=== PATIENT | female | born 1995 | race Hispanic/Latino ===

== ENCOUNTER 2023-02-07 19:52 | Inpatient (IN) | payer MEDICAID, OTHER, SELFPAY ==
[2023-02-07] MEDS ORDERED: Misoprostol 200 MCG TAB PR PRN (20:36)
[2023-02-07] MEDS ORDERED: hydrALAZINE 20 MG/ML VIAL SLOW IVP PRN (20:36)
[2023-02-07] MEDS ORDERED: Lidocaine 1% (PF) 30 ML VIAL SC PRN (20:36)
[2023-02-07] MEDS ORDERED: Ondansetron PF 4 MG/2 ML Vial IVP PRN (20:36)
[2023-02-07] MEDS ORDERED: Tranexamic Acid 1,000 MG/10 ML VIAL IVP PRN (20:36)
[2023-02-07] MEDS ORDERED: Promethazine HCl 25 MG/ML VIAL IM PRN (20:36)
[2023-02-07 20:39] VITALS: BMI 26.6
[2023-02-07] MEDS ORDERED: NS w/ Oxytocin 30 units 500 ML IV SCH ×2 (20:45)
[2023-02-07 21:00] LABS: Hemoglobin 11.1 g/dL (12.0-15.5); Mean Corpuscular Hemoglobin 26.6 pg (27.0-33.0); Mean Corpuscular Volume 80.4 fl (81.6-98.3); Mean Platelet Volume 11.8 fl (7.4-10.4); Platelet Count 185 10x3/uL (150-450); RBC Distribution Width 15.3 % (11.5-14.5); Red Blood Cell (RBC) Count 4.18 10x6/uL (3.90-5.03); White Blood Cell (WBC) Count 9.7 10x3/uL (3.5-10.5)
[2023-02-07] MEDS ORDERED: Lactated Ringer's 1,000 ML IV SCH (21:00)
[2023-02-07] MEDS ORDERED: Acetaminophen 500 MG TAB PO PRN (21:00)
[2023-02-07] MEDS ORDERED: Ibuprofen 800 MG TAB PO PRN (21:00)
[2023-02-07] MEDS ORDERED: Carboprost 250 MCG/ML AMP IM PRN (21:00)
[2023-02-07] MEDS ORDERED: Methylergonovine 0.2 MG/ML VIAL IM PRN (21:00)
[2023-02-07 21:25] LABS: HBSAg Index 0.16 S/CO (0-0.99); Hep B Surf Ag - L&D Non-Reactive S/CO (NonReactive)
[2023-02-07 21:35] LABS: Syphilis Antibody Nonreactive (Nonreactive); Syphilis Antibody Index 0.05 S/CO (<1.00 Non-Reactive)
[2023-02-08] MEDS ORDERED: Lanolin Ointment 7 GM TUBE TOP PRN (01:24)
[2023-02-08] MEDS ORDERED: Ondansetron PF 4 MG/2 ML Vial IVP PRN (01:24)
[2023-02-08] MEDS ORDERED: hydrALAZINE 20 MG/ML VIAL SLOW IVP PRN (01:24)
[2023-02-08] MEDS ORDERED: Bisacodyl 10 MG SUPP PR PRN (01:24)
[2023-02-08] MEDS ORDERED: Methylergonovine 0.2 MG/ML VIAL IM PRN (01:24)
[2023-02-08] MEDS ORDERED: Preparation H Ointment 28 GM TUBE PR PRN (01:24)
[2023-02-08] MEDS ORDERED: Misoprostol 200 MCG TAB VAG PRN (01:24)
[2023-02-08] MEDS ORDERED: Milk Of Magnesia 30 ML UDCUP PO PRN (01:24)
[2023-02-08] MEDS ORDERED: Boostrix 0.5 ML (Tdap) VIAL (>/=7 yrs of age) IM ONE (01:24)
[2023-02-08] MEDS ORDERED: NS w/ Oxytocin 30 units 500 ML IV SCH (01:30)
[2023-02-08 03:05] LABS: #Monocytes 0.6 10x3/uL (0.0-1.1); #Neutrophils 14.5 10x3/uL (1.5-8.4); %Basophils 0.1 % (0.0-2.0); %Lymphocytes 3.6 % (18.0-47.0); %Monocytes 3.7 % (0.0-10.0); %Neutrophils 92.1 % (40.0-75.0); Hemoglobin 11.3 g/dL (12.0-15.5); Mean Corpuscular HGB CONC 32.8 g/dL (32.0-36.0); Mean Corpuscular Hemoglobin 26.6 pg (27.0-33.0); Mean Corpuscular Volume 80.9 fl (81.6-98.3); Mean Platelet Volume 12.1 fl (7.4-10.4); Platelet Count 178 10x3/uL (150-450); RBC Distribution Width 15.5 % (11.5-14.5); Red Blood Cell (RBC) Count 4.25 10x6/uL (3.90-5.03); White Blood Cell (WBC) Count 15.7 10x3/uL (3.5-10.5)
[2023-02-08] MEDS: Ibuprofen 800 MG TAB PO SCH ×3 (05:51→21:42)
[2023-02-08] MEDS: Prenatal Vitamin 1 TAB PO SCH (13:55)
[2023-02-08] MEDS: Docusate 100 MG CAP PO SCH ×2 (13:56→21:42)
[2023-02-08] MEDS: Ferrous Sulfate 325 MG TAB PO SCH ×2 (13:56→19:31)
[2023-02-09] MEDS: Ibuprofen 800 MG TAB PO SCH ×3 (05:18→21:34)
[2023-02-09] MEDS: Prenatal Vitamin 1 TAB PO SCH (08:37)
[2023-02-09] MEDS: Ferrous Sulfate 325 MG TAB PO SCH ×2 (08:37→16:43)
[2023-02-09] MEDS: Docusate 100 MG CAP PO SCH ×2 (08:37→21:34)
[2023-02-10] MEDS: Ibuprofen 800 MG TAB PO SCH (06:20)
[2023-02-10 07:13] VITALS: BP 95/58; TEMP 99
[2023-02-10] MEDS: Docusate 100 MG CAP PO SCH (08:18)
[2023-02-10] MEDS: Prenatal Vitamin 1 TAB PO SCH (08:18)
[2023-02-10] MEDS: Ferrous Sulfate 325 MG TAB PO SCH (08:26)
== END 2023-02-10 14:10 | disposition home or self-care (01) | DRG 807 ==
LOC: CSHLD/OP 19:52 → CSHLD 20:35 → CSHPP 02-08 03:40
PROVIDERS: ADMIT Obstetrics & Gynecology; ATTEND Obstetrics & Gynecology
PROC: 10907ZC Drainage of Amniotic Fluid, Therapeutic from Products of Conception, Via Natural or Artificial Opening (ICD-10-PCS; 2023-02-07)
PROC: 10E0XZZ Delivery of Products of Conception, External Approach (ICD-10-PCS; principal; 2023-02-08)
PROC: 0KQM0ZZ Repair Perineum Muscle, Open Approach (ICD-10-PCS; 2023-02-08)
DX: O36.63X0 Maternal care for excessive fetal growth, third trimester, not applicable or unspecified (principal); Z37.0 Single live birth; Z3A.38 38 weeks gestation of pregnancy; O99.02 Anemia complicating childbirth; D64.9 Anemia, unspecified; O70.1 Second degree perineal laceration during delivery; Z22.7 Latent tuberculosis
CPT/HCPCS: 36415; 85025; 85027; 86780; 86850; 86900; 86901; 87340; 99285; J2001; J2210; J2405; J2590; J7120